=== PATIENT | male | born 1995 | race African-American/Black ===

== ENCOUNTER 2018-02-26 18:54 | Emergency (ER) | payer SELFPAY ==
[~2018-02-26] VITALS: Ht 167.6 cm; Wt 57.1 kg
[2018-02-26 19:04] VITALS: BP 138/83
== END 2018-02-27 03:00 | disposition left against medical advice (07) ==
LOC: ER 02-27 02:32
DX: K12.2 Cellulitis and abscess of mouth (principal); Z53.21 Procedure and treatment not carried out due to patient leaving prior to being seen by health care provider